=== PATIENT | male | born 1970 | race Hispanic/Latino ===

== ENCOUNTER 2018-06-15 13:35 | Emergency (ER) | payer OTHER ==
[~2018-06-15] VITALS: Ht 170.2 cm; Wt 72.6 kg
[2018-06-15 14:09] VITALS: BP 135/73
[2018-06-15] MEDS ORDERED: KEFLEX500 M1 PO (15:56)
--- NOTE | 2018-06-15 15:57 | ED HAND/WRIST INJURY COMPLAINT ---
History of Present Illness General Chief Complaint: Laceration Procedure Stated Complaint: L HAND THUMB FINGER LAC Source: patient Exam Limitations: no limitations Vital Signs & Intake/Output Vital Signs & Intake/Output Vital Signs Date Time Temp Pulse Resp B/P B/P Pulse O2 O2 Flow FiO2 Mean Ox Delivery Rate 06/15 1409 99.0 66 16 135/73 98 Room Air Allergies Coded Allergies: No Known Allergies (06/15/18) Reconcile Medications Cephalexin (Keflex) 500 MG CAPSULE 1 CAP PO TID wound ppx Triage Note: RECEIVED 47 YO MALE C/O HE CUT HIS LEFT THUMB AT WORK ON AN [employer]. PT WAS SEEN AT AN URGENT CARE AND SENT TO THE ED. PT COMES IN TO ED WITH DRESSING DRY AND INTACT. Triage Nurses Notes Reviewed? yes Occurred: just prior to arrival Duration: hour(s): (2), constant, continues in ED Timing: single episode today Injury Environment: home Severity: mild, moderate Severity Numbers: 5 Pain/Injury Location: Left: 1st finger. Context: laceration Method of Injury: laceration No Modifying Factors: none HPI: 47-year-old male with no medical history is evaluation of a laceration to his left thumb. Patient was working with an angle carbide grinder just prior to arrival the carbide grinder slipped and hit his left thumb. He has a laceration over the distal segment of the posterior thumb there is nail involvement. No numbness or tingling no other injuries. Unsure of his last tetanus shot. (Laron Herring) Past History Travel History Traveled to [place] past 21 day No Medical History Any Pertinent Medical History? see below for history Neurological: NONE EENT: NONE Cardiovascular: NONE Respiratory: NONE Gastrointestinal: NONE Hepatic: NONE Renal: NONE Musculoskeletal: NONE Psychiatric: NONE Endocrine: NONE Blood Disorders: NONE Cancer(s): NONE Surgical History Surgical History: non-contributory Psychosocial History What is your primary language Romansh Tobacco Use: Never used Family History Hx Contributory? No (Laron Herring) Review of Systems Review of Systems Constitutional: Reports: no symptoms. EENTM: Reports: no symptoms. Respiratory: Reports: no symptoms. Cardiovascular: Reports: no symptoms. GI: Reports: no symptoms. Genitourinary: Reports: no symptoms. Musculoskeletal: Reports: no symptoms. Skin: Reports: see HPI (LAC). Neurological/Psychological: Reports: no symptoms. Hematologic/Endocrine: Reports: no symptoms. Immunologic/Allergic: Reports: no symptoms. All Other Systems: Reviewed and Negative (Laron Herring) Physical Exam Physical Exam General Appearance: well developed/nourished, no apparent distress, alert, awake Head: atraumatic, normal appearance Eyes: Bilateral: normal appearance, EOMI. Ears, Nose, Throat: hearing grossly normal Neck: normal inspection, supple, full range of motion Cardiovascular/Respiratory: no respiratory distress Elbow Left: normal range of motion, normal inspection Elbow Right: normal range of motion, normal inspection Forearm Left: normal range of motion, normal inspection Forearm Right: normal range of motion, normal inspection Wrist Left: normal range of motion, normal inspection Wrist Right: normal range of motion, normal inspection Hand Left: lacerations, nail injury, evidence of injury, 1st finger, THERE IS A 1 CM LINEAR HORIZONTAL LACERATION THAT EXTENDS FROM THE LATERAL NAIL FOLD THROUGH THE NAIL INTO THE NAIL BED. tHE DISTAL FINGERNAIL IS NEARLY AVULSED. sMALL AMOUNT OF ACTIVE BLEEDING. fULL RANGE OF MOTION IS INTACT NEUROVASCULAR sUPPLY INTACT NO BONY POINT TENDERNESS OR SWELLING Hand Right: normal inspection, normal range of motion Neurologic/Tendon: normal sensation, normal motor functions, normal tendon functions, responds to pain, no evidence tendon injury, no pulse deficit Skin: intact, normal color, warm/dry Lymphatic: no anterior cervical bernardino (Laron Herring) Progress Differential Diagnosis: contusion, fracture, sprain, LACERATION, Plan of Care: Current Medications Sig/Nicola Start time Last Medication Dose Stop Time Status Admin Tetanus/Diphtheria 0.5 ML ONCE ONE 06/15 1600 UNVr Toxoids Adsorbed 06/15 1601 (Decavac) Patient is here with a laceration to the left thumb. There is fingernail and nailbed laceration. Low suspicion for fracture. The wound was cleaned with sterile water and Betadine. One percent lidocaine was used to apply digital block. 3 4-0 chromic simple rapid sutures used to approximate the wound including the nailbed laceration. Patient tolerated well. He is placed in a splint and sterile dressing. PT COVERED with antibiotics. Discussed wound care procedures in detail. Sutures will come out around follow-up with the primary care doctor for a recheck. (Laron Herring) Departure Departure Disposition: HOME OR SELF CARE Condition: Stable Clinical Impression Primary Impression: Laceration of nail bed of finger Qualifiers: Encounter type: initial encounter Qualified Code: S61.319A - Laceration without foreign body of unspecified finger with damage to nail, initial encounter Referrals: Unknown (PCP/Family) Additional Instructions: Take antibiotics as directed for the full course. Change dressing once daily. wear splint at all times. Tylenol or ibuprofen for pain. look for signs of infection like redness or discharge or pain. Monitor symptoms. the sutures are dissolvable. Departure Forms: Customer Survey General Discharge Information Prescriptions: Current Visit Scripts Cephalexin (Keflex) 1 CAP PO TID #30 CAP (Laron Herring) PA/SENIOR NETWORK ARCHITECT Co-Sign Statement Statement: ED Attending supervision documentation- [] I saw and evaluated the patient. I have also reviewed all the pertinent lab results and diagnostic results. I agree with the findings and the plan of care as documented in the PA's/SENIOR NETWORK ARCHITECT's documentation. [X] I have reviewed the ED Record and agree with the PA's/SENIOR NETWORK ARCHITECT's documentation. [] Additions or exceptions (if any) to the PAs/SENIOR NETWORK ARCHITECT's note and plan are summarized below: [] (Brandon Hardy DO) Procedures Laceration/Wound Repair Laceration/Wound Repair: Wound Location: head (LEFT THUMB), upper extremity (LEFT THUMB ) Wound's Depth, Shape: linear, other (NAIL BED LAC), subcutaneous Wound Length (cm): 1 Wound Explored: clean, no foreign body removed, irrigated extensively Irrigated w/ Saline (ccs): 300 Betadine Prep? Yes Anesthesia: digit block, 1% lidocaine Volume Anesthetic (ccs): 6 Wound Debrided: minimal Wound Repaired With: sutures Suture Size/Type: 4:0, CHROMIC Number of Sutures: 3 Layer Closure? No Sterile Dressing Applied: Yes Splint Applied? Yes By Who? by me Tetanus Status: not up to date (UPDATED TODAY) (Laron Herring)
== END 2018-06-15 16:32 ==
LOC: ERH 13:35
DX: S61.112A Laceration without foreign body of left thumb with damage to nail, initial encounter (principal); W31.1XXA Contact with metalworking machines, initial encounter; Y92.009 Unspecified place in unspecified non-institutional (private) residence as the place of occurrence of the external cause
CPT/HCPCS: 90471; 90714